=== PATIENT | female | born 1990 | race Caucasian/White ===

== ENCOUNTER 2017-05-17 20:09 | Inpatient (IN) | payer OTHER ==
--- NOTE | 2017-05-17 20:48 | EDPHY ---
H & P Stated Complaint: LRQ abd pain x 3d Time Seen by Provider: 05/17/17 20:47 HPI/ROS: HPI: This is a 27-year-old female who presents with Chief Complaint: RLQ abd pain x 3d Location: Right lower quadrant Quality: Abdominal pain Duration: 3 days Signs and Symptoms: no fever, + nausea, no vomiting, no hematemesis, no blood in stool, no abdominal bloating, no diarrhea, no back pain, no urinary symptoms , no vaginal bleeding, no vaginal discharge Timing: Rapid onset that is worsening in nature Severity: Moderate to severe Context: Patient presents complaining of right lower quadrant pain was the rapid onset that has become more severe since last night. Accompanied by nausea but no vomiting. Denies fever, chills, diarrhea, vaginal discharge, vaginal bleeding. This morning she was seen by the director for beauty [employer] and had her IUD removed and control implanted into her left upper arm. LMP was approximately 2 weeks ago and she has no prior history of ovarian cysts, fibroids, dyspareunia. Last meal was 1900 yesterday evening. Modifying Factors: None Comment: ROS: see HPI Constitutional: No fever, no chills, no weight loss Eyes: No blurred vision Respiratory: No shortness of breath, no cough Cardiovascular: No chest pain, no palpitations Gastrointestinal: + nausea, no vomiting, no diarrhea, no hematemesis, no blood in stool Genitourinary: No dysuria, no blood in urine Extremities: No myalgias, no edema Neurologic: No weakness, no numbness Skin: No rashes, no petechiae Hematologic: No bruising, no bleeding MEDICAL/SURGICAL/SOCIAL HISTORY: Medical history: Generally healthy. Does not take any regular medications. Surgical history: Denies Social history: Stop employed CONSTITUTIONAL: Pleasant mild distress adult white female, awake and alert, nontoxic in appearance HEENT: Atraumatic and normocephalic, PERRL, EOMI. Tympanic membranes clear. Oropharynx clear, no exudate and moist pink mucosa. Airway patent. No lymphadenopathy. No meningismus. Cardiovascular: Normal S1/S2, regular rate, regular rhythm, without murmur rub or gallop. PULMONARY/CHEST: Symmetrical and nontender. Clear to auscultation bilaterally. Good air movement. No accessory muscle usage. ABDOMEN: Soft, nondistended, exquisitely tender right lower quadrant, no rebound, no guarding, no peritoneal signs, no masses or organomegaly. No CVAT. EXTREMITIES: 2/2 pulses, strength 5/5, no deformities, no clubbing, no cyanosis or edema. NEUROLOGICAL: no focal neuro deficits. GCS 15. SKIN: Warm and dry, no erythema. no rash. Good capillary refill. Source: Patient Exam Limitations: No limitations - Personal History LMP (Females 10-55): 8-14 Days Ago Current Tetanus/Diphtheria Vaccine: Yes Current Tetanus Diphtheria and Acellular Pertussis (TDAP): Yes - Medical/Surgical History Hx Asthma: No Hx Chronic Respiratory Disease: No Hx Diabetes: No Hx Cardiac Disease: No Hx Renal Disease: No Hx Cirrhosis: No Hx Alcoholism: No Hx HIV/AIDS: No Hx Splenectomy or Spleen Trauma: No Other PMH: hypothyroid, neuromyelitis optica, Anemia, RA, chronic variable immune deficiency - Social History Smoking Status: Never smoked Constitutional: Initial Vital Signs Temperature (C) 37.1 C 05/17/17 20:14 Heart Rate 100 05/17/17 20:14 Respiratory Rate 16 05/17/17 20:14 Blood Pressure 134/91 H 05/17/17 20:14 O2 Sat (%) 96 05/17/17 20:14 O2 Delivery Mode Room Air Allergies/Adverse Reactions: No Known Allergies Allergy (Verified 05/17/17 20:14) Home Medications: Medication Instructions Recorded Levothyroxine [Synthroid 100 mcg 100 mcg PO DAILY06 03/30/15 (*)] Medical Decision Making - Diagnostics Imaging Results: Imaging Impressions Abdomen CT 05/17/17 20:50 Impression: Severe appendicitis. I telephoned results to LISA Sanchez at 2222 hours. ED Course/Re-evaluation: Labs, IV fluids, IV medications, CT abdomen and pelvis scan ordered Upon arrival given 1 L normal saline IV morphine 4 mg and IV Zofran with adequate relief of pain Vital show an show tachycardia with no pyrexia Labs reviewed and leukocytosis 9K 2225: Called by radiologist who advised that CT abdomen and pelvis scan shows acute appendicitis with free fluid and cannot rule out perforation. Discussed case with attending. Given another 1 L normal saline, IV morphine 4 mg, IV Zofran, and IV Invanz. 2227: ED decision to consult for admission. Spoke with Dr. Cruz Differential Diagnosis: Abdominal pain including but not limited to appendicitis, cholecystitis, gastritis and urinary tract infection. - Data Points Laboratory Results: Laboratory Results 05/17/17 20:46 05/17/17 20:46 05/17/17 05/17/17 05/17/17 20:46 20:46 20:46 WBC 9.74 10^3/uL H 10^3/uL (3.80-9.50) RBC 4.80 10^6/uL 10^6/uL (4.18-5.33) Hgb 13.9 g/dL g/dL (12.6-16.3) Hct 41.3 % % (38.0-47.0) MCV 86.0 fL fL (81.5-99.8) MCH 29.0 pg pg (27.9-34.1) MCHC 33.7 g/dL g/dL (32.4-36.7) RDW 14.6 % % (11.5-15.2) Plt Count 220 10^3/uL 10^3/uL (150-400) Sodium 139 mEq/L mEq/L (134-144) Potassium 3.8 mEq/L mEq/L (3.5-5.2) Chloride 100 mEq/L mEq/L (97-110) Carbon Dioxide 24 mEq/l mEq/l (22-31) Anion Gap 15 mEq/L mEq/L (8-16) BUN 14 mg/dL mg/dL (7-23) Creatinine 0.7 mg/dL mg/dL (0.6-1.0) Estimated GFR > 60 Glucose 98 mg/dL mg/dL (70-100) Calcium 9.9 mg/dL mg/dL (8.5-10.4) Total Bilirubin 0.7 mg/dL mg/dL (0.1-1.4) Conjugated Bilirubin 0.2 mg/dL mg/dL (0.0-0.5) Unconjugated Bilirubin 0.5 mg/dL mg/dL (0.0-1.1) AST 29 IU/L IU/L (14-46) ALT 30 IU/L IU/L (9-52) Alkaline Phosphatase 81 IU/L IU/L (38-126) Total Protein 7.5 g/dL g/dL (6.3-8.2) Albumin 4.5 g/dL g/dL (3.5-5.0) Beta HCG, Qual NEGATIVE Medications Given: Discontinued Medications Sodium Chloride (Ns) 1,000 mls @ 0 mls/hr IV EDNOW ONE; Wide Open PRN Reason: Protocol Stop: 05/17/17 20:53 Last Admin: 05/17/17 21:01 Dose: 1,000 mls Sodium Chloride (Ns) 1,000 mls @ 0 mls/hr IV EDNOW ONE; Wide Open PRN Reason: Protocol Stop: 05/17/17 22:24 Last Admin: 05/17/17 22:28 Dose: 1,000 mls Morphine Sulfate (Morphine) 4 mg IVP EDNOW ONE Stop: 05/17/17 20:54 Last Admin: 05/17/17 21:40 Dose: 2 mg Morphine Sulfate (Morphine) 2 mg IVP EDNOW ONE Stop: 05/17/17 21:39 Last Admin: 05/17/17 21:45 Dose: Not Given Ondansetron HCl (Zofran) 4 mg IVP EDNOW ONE Stop: 05/17/17 20:53 Last Admin: 05/17/17 21:01 Dose: 4 mg Departure - Departure Disposition: [facility] Acute Clinical Impression: Appendicitis Qualifiers: Appendicitis type: acute appendicitis Acute appendicitis type: with localized peritonitis Qualified Code(s): K35.3 - Acute appendicitis with localized peritonitis
[2017-05-17] MEDS ORDERED: NS 1,000 ML IV ONE ×2 (20:52→22:23)
[2017-05-17] MEDS ORDERED: ONDANSETRON 4 MG/2 ML VIAL IVP ONE ×2 (20:52→22:23)
[2017-05-17 20:55] LABS: HEMATOCRIT 41.3 % (38.0-47.0); HEMOGLOBIN 13.9 g/dL (12.6-16.3); MEAN CELL HEMOGLOBIN CONCENTR. 33.7 g/dL (32.4-36.7); RED BLOOD CELL COUNT 4.8 10^6/uL (4.18-5.33); RED CELL DISTRIBUTION WIDTH 14.6 % (11.5-15.2)
[2017-05-17 21:08] LABS: ALANINE AMINOTRANSFERASE 30 IU/L (9-52); ALBUMIN 4.5 g/dL (3.5-5.0); ALKALINE PHOSPHATASE 81 IU/L (38-126); ANION GAP 15 mEq/L (8-16); ASPARTATE AMINOTRANSFERASE 29 IU/L (14-46); BILIRUBIN,TOTAL 0.7 mg/dL (0.1-1.4); BILIRUBIN-CONJUGATED 0.2 mg/dL (0.0-0.5); BILIRUBIN-UNCONJUGATED 0.5 mg/dL (0.0-1.1); CALCIUM 9.9 mg/dL (8.5-10.4); CARBON DIOXIDE 24 mEq/l (22-31); CHLORIDE 100 mEq/L (97-110); CREATININE 0.7 mg/dL (0.6-1.0); GLOMERULAR FILTRATION RATE > 60; GLUCOSE 98 mg/dL (70-100); POTASSIUM 3.8 mEq/L (3.5-5.2); SODIUM 139 mEq/L (134-144); TOTAL PROTEIN 7.5 g/dL (6.3-8.2)
[2017-05-17] MEDS ORDERED: IOPAMIDOL (ISOVUE-300) 100 ML BTL ONE (21:20)
[2017-05-17] MEDS ORDERED: ERTAPENEM 1 GM in NS 100 ML IV ONE (22:23)
[2017-05-17] MEDS ORDERED: BUPIVACAINE 0.25% 30 ML SDV ONE (23:15)
--- NOTE | 2017-05-17 23:20 | PDGENHP ---
History and Physical - Chief Complaint abdominal pain - History of Present Illness 27 y/o female with 2 day hx of abd pain. She presented to [facility] today and had her IUD removed. She felt worse afterwards and came to the [facility] ED and was seen and evaluated by LISA Suresh and Dr. Loc Waggoner. A CT showed locally advanced appendicitis, possible ruptured. Surgical consultation was requested History Information - Allergies/Home Medication List Allergies/Adverse Reactions: No Known Allergies Allergy (Verified 05/17/17 20:14) Home Medications: Levothyroxine [Synthroid 100 mcg (*)] 100 mcg PO DAILY06 03/30/15 [Last Taken ] I have personally reviewed and updated: family history, medical history, social history, surgical history - Past Medical History arthritis Additional medical history: hypogammaglobulinemia/prolonged hospitalization in 2015/hx C diff. - Surgical History Additional surgical history: ORIF right ankle - Social History Smoking Status: Never smoked Alcohol Use: Occasionally Drug Use: Marijuana (smokes 2x week) Review of Systems Review of Systems: Constitutional: Reports: chills, fever EENMT: Reports: no symptoms Cardiac: Reports: no symptoms Respiratory: Reports: cough Gastrointestinal: Reports: vomitting, abdominal pain, abdominal distention Genitourinary: Reports: no symptoms, other (recently diagnosed with bacterial vaginosis/IUD out today ) Muscolosketal: Reports: joint pain, joint swelling Skin: Reports: no symptoms Neurological: Reports: no symptoms Physical Exam Physical Exam: Temp Pulse Resp BP Pulse Ox 37.3 C 104 H 18 122/77 H 98 05/17/17 22:29 05/17/17 22:29 05/17/17 22:29 05/17/17 22:29 05/17/17 22:29 Constitutional: uncomfortable Eyes: anicteric sclera Cardiovascular: regular rate and rhythym Respiratory: no respiratory distress, no rales or rhonchi, clear to auscultation Gastrointestinal: other (hypoactive bowel sounds) Skin: warm Neurologic: AAOx3 Psychiatric: interacting appropriately Lymph, Heme, Immunologic: no supraclavicular LAD Lab Data & Imaging Review 05/17/17 20:46 05/17/17 20:46 WBC 9.74 10^3/uL (3.80-9.50) H 05/17/17 20:46 RBC 4.80 10^6/uL (4.18-5.33) 05/17/17 20:46 Hgb 13.9 g/dL (12.6-16.3) 05/17/17 20:46 Hct 41.3 % (38.0-47.0) 05/17/17 20:46 MCV 86.0 fL (81.5-99.8) 05/17/17 20:46 MCH 29.0 pg (27.9-34.1) 05/17/17 20:46 MCHC 33.7 g/dL (32.4-36.7) 05/17/17 20:46 RDW 14.6 % (11.5-15.2) 05/17/17 20:46 Plt Count 220 10^3/uL (150-400) 05/17/17 20:46 Sodium 139 mEq/L (134-144) 05/17/17 20:46 Potassium 3.8 mEq/L (3.5-5.2) 05/17/17 20:46 Chloride 100 mEq/L (97-110) 05/17/17 20:46 Carbon Dioxide 24 mEq/l (22-31) 05/17/17 20:46 Anion Gap 15 mEq/L (8-16) 05/17/17 20:46 BUN 14 mg/dL (7-23) 05/17/17 20:46 Creatinine 0.7 mg/dL (0.6-1.0) 05/17/17 20:46 Estimated GFR > 60 05/17/17 20:46 Glucose 98 mg/dL (70-100) 05/17/17 20:46 Calcium 9.9 mg/dL (8.5-10.4) 05/17/17 20:46 Total Bilirubin 0.7 mg/dL (0.1-1.4) 05/17/17 20:46 Conjugated Bilirubin 0.2 mg/dL (0.0-0.5) 05/17/17 20:46 Unconjugated Bilirubin 0.5 mg/dL (0.0-1.1) 05/17/17 20:46 AST 29 IU/L (14-46) 05/17/17 20:46 ALT 30 IU/L (9-52) 05/17/17 20:46 Alkaline Phosphatase 81 IU/L (38-126) 05/17/17 20:46 Total Protein 7.5 g/dL (6.3-8.2) 05/17/17 20:46 Albumin 4.5 g/dL (3.5-5.0) 05/17/17 20:46 Beta HCG, Qual NEGATIVE 05/17/17 20:46 Visualized and Interpreted imaging results: Yes Interpretation: markedly dilated appendix (>2cm) free fluid/no discrete abscess Assessment & Plan Assessment: Appendicitis (Acute)probably ruptured hypogammaglobulinemia Plan: IV Invanz 1 gm to OR for appendectomy I recommended an open approach with drainage. We will obtain cultures and continue abx post op Hospitalist consult requested
[2017-05-17] MEDS ORDERED: NALOXONE HCL 0.4 MG/ML INJ IVP PRN (23:39)
[2017-05-17] MEDS ORDERED: ALBUTEROL 3 ML DEYVIAL IH PRN (23:39)
[2017-05-17] MEDS ORDERED: fentaNYL 100 MCG/2 ML INJ IVP PRN (23:39)
[2017-05-17] MEDS ORDERED: PROMETHAZINE HCL 25 MG/ML INJ IVP PRN (23:39)
[2017-05-17] MEDS ORDERED: ONDANSETRON 4 MG/2 ML VIAL IVP PRN (23:39)
--- NOTE | 2017-05-17 23:41 | PDANEPAE ---
ANE History of Present Illness Ruptured Appendicitis ANE Past Medical History - Cardiovascular History Hx Hypertension: No - Pulmonary History Hx Oxygen in Use at Home: No Hx Sleep Apnea: No - Endocrine History Hx Diabetes: No - Chronic Pain History Chronic Pain: No ANE Review of Systems Review of Systems: - Exercise capacity METS (RN): 4 METS ANE Patient History - Allergies Allergies/Adverse Reactions: No Known Allergies Allergy (Verified 05/17/17 20:14) - Home Medications Home Medications: Levothyroxine [Synthroid 100 mcg (*)] 100 mcg PO DAILY06 03/30/15 [Last Taken ] - NPO status NPO Since - Liquids (Date): 05/17/17 NPO Since - Liquids (Time): 22:00 NPO Since - Solids (Date): 05/16/17 NPO Since - Solids (Time): 19:00 - Smoking Hx Smoking Status: Never smoked - Alcohol Use Alcohol Use: Occasionally ANE Labs/Vital Signs - Labs Result Diagrams: 05/17/17 20:46 05/17/17 20:46 - Vital Signs Blood Pressure: 122/87 Heart Rate: 89 Respiratory Rate: 16 O2 Sat (%): 96 Height: 162.56 cm Weight: 63.503 kg ANE Physical Exam - Airway Neck exam: FROM Mallampati Score: Class 2 Mouth exam: normal dental/mouth exam - Pulmonary Pulmonary: clear to auscultation - Cardiovascular Cardiovascular: regular rate and rhythym - ASA Status ASA Status: II ANE Anesthesia Plan Anesthesia Plan: general endotracheal anesthesia
[2017-05-17] MEDS ORDERED: fentaNYL 100 MCG/2 ML INJ ONE (23:50)
[2017-05-17] MEDS ORDERED: ROCURONIUM 50 MG/5 ML VIAL ONE (23:50)
[2017-05-17] MEDS ORDERED: PROPOFOL 200 MG/20 ML VIAL ONE (23:50)
[2017-05-17] MEDS ORDERED: LIDOCAINE 2% 5 ML SDV ONE (23:51)
[2017-05-17] MEDS ORDERED: ONDANSETRON 4 MG/2 ML VIAL ONE (23:52)
[2017-05-17] MEDS ORDERED: DEXAMETHASONE 4 MG/ML VIAL ONE (23:52)
[2017-05-18] MEDS ORDERED: LR 1,000 ML IV ONE (00:25)
[2017-05-18] MEDS ORDERED: fentaNYL 100 MCG/2 ML INJ ONE (00:38)
[2017-05-18] MEDS ORDERED: HYDROmorphONE/DILAUDID 1 MG/ML INJ ONE ×2 (01:04→01:10)
[2017-05-18] MEDS: HYDROmorphONE/DILAUDID 1 MG/ML INJ IVP PRN ×8 (01:04→10:50)
--- NOTE | 2017-05-18 01:04 | POSTANESTH ---
Post Anesthetic Evaluation Cardiovascular Status: Normal, Stable Respiratory Status: Normal, Stable Level of Consciousness/Mental Status: Can Participate in Eval, Alert and Oriented Pain Control: Adequate, Prn Tx Ordered Nausea/Vomiting Control: Adequate, Prn Tx Ordered Complications Possibly Related to Anesthesia: None Noted
--- NOTE | 2017-05-18 01:04 | POSTOPPROG ---
Post Op Note Date of Operation: 05/18/17 Surgeon: Marvin Cruz (, FACS) Anesthesiologist: Jem Mackenzie DO Anesthesia: GET(General Endotracheal) Pre-op Diagnosis: acute appendicitis with rupture Post-op Diagnosis: acute on chronic appendicitis with rupture Procedure: appendectomy with drainage abscess Inf/Abcess present in the surg proc area at time of surgery?: Yes Depth: Organ Space EBL: Minimal Drains: Rafi Wren Dieudonne Specimen(s): appendix/culture
[2017-05-18] MEDS ORDERED: HYDROCODONE/APAP 5/325 TAB PO PRN (01:05)
[2017-05-18] MEDS ORDERED: ONDANSETRON 4 MG/2 ML VIAL IVP PRN (01:05)
[2017-05-18] MEDS ORDERED: METOCLOPRAMIDE 10 MG/2 ML VIAL IVP PRN (01:05)
[2017-05-18] MEDS ORDERED: KETOROLAC 15 MG/1 ML SDV ONE ×2 (01:11→01:17)
[2017-05-18] MEDS: KETOROLAC 15 MG/1 ML SDV IVP SCH ×4 (01:12→18:05)
[2017-05-18] MEDS ORDERED: D5W 1/2 NS W/ 20 KCl/L 1,000 ML IV SCH (01:15)
--- NOTE | 2017-05-18 03:59 | GCON ---
[f rep st] CONSULTATION DATE OF CONSULTATION: 05/18/2017 REFERRING PHYSICIAN: Marvin Cruz MD REASON FOR CONSULTATION: Medical management with history of hypogammaglobulinemia. CHIEF COMPLAINT: Right lower quadrant abdominal pain. HISTORY OF PRESENT ILLNESS: This is a very pleasant 27-year-old female with past medical history sig nificant for hypogammaglobulinemia, anemia of chronic disease, polyarticular arthritis, and chronic p ain, who presents to the emergency department today for complaints of abdominal pain. Patient report s her pain started several days ago, 2-3 days ago. She endorses nausea without vomiting. Has had so me constipation without any melena or hematochezia. Patient was recently at her [employer] earlier today and had her IUD removed. She had increasing right lower quadrant pain and presented to the emergenc y department. Patient also endorses subjective fevers for the last several days, in addition to chil ls. Patient without any vaginal bleeding or discharge. Patient's LMP was approximately 2 weeks ago. REVIEW OF SYSTEMS: GENERAL: Positive for subjective fevers, chills, decreased appetite. SKIN: Pat ient denies any new rashes or sores. ENT: Patient denies any congestion, sore throat. EYES: Patie nt denies any acute changes in vision or ocular pain. RESPIRATORY: Patient denies any shortness of breath or cough. CV: Patient denies any chest pain or palpitations. GI: Positive for nausea. No vomiting. No diarrhea. Positive constipation. No melena or hematochezia. See HPI for additional d etails. : No dysuria or hematuria. MUSCULOSKELETAL: Patient with chronic ankle and hip pain and back pain related to her polyarticular arthritis. NEURO: Patient without any complaints of headach e, numbness, tingling, or focal deficits. PSYCH: Patient currently feeling stressed, but no previou s history of anxiety or depression. Remainder of review of systems negative except as noted above. ALLERGIES: No known drug allergies. HOME MEDICATIONS: Synthroid 100 mcg p.o. daily. PAST MEDICAL HISTORY: Significant for hypogammaglobulinemia; history of neuromyelitis optica in 2014 , status post Rituxan and CellCept; history anemia of chronic disease; history of C difficile in [place]; polyarticular arthritis with primary joints affected, including hips and ankles, chronic back pain; hypothyroidism. PAST SURGICAL HISTORY: Significant for right ankle washout and biopsy. Today, she underwent an open appendectomy. FAMILY HISTORY: Significant for mother with an autoimmune thyroid disease, diabetes type 1. Brother with type 1 diabetes, hyperparathyroidism. SOCIAL HISTORY: Patient currently lives with her boyfriend. She does not smoke cigarettes or drink alcohol. She does use occasional marijuana. CODE STATUS: Full. PHYSICAL EXAMINATION: VITAL SIGNS: Upon arrival to the ED, blood pressure 134/91, pulse 100, respir atory rate 16, O2 saturation 96% on room air with a temperature 37.1. Vitals currently in the PACU, blood pressure 120/72, heart rate is 86, respiratory rate 11, O2 saturation 96% on nasal cannula. GE NERAL: No acute distress. Patient is lying quite still in the gurney. She does appear fatigued, ac utely ill, but nontoxic, anxious. HEAD: Normocephalic, atraumatic. EYES: Extraocular muscles are grossly intact. No scleral icterus or conjunctival injection. ENT: Mucous membranes appear slightl y dry. No nasal discharge. NECK: Supple. Trachea midline. CV: Regular rate and rhythm. No murm urs, rubs, or gallops appreciated. RESPIRATORY: Lungs clear to auscultation bilaterally. Patient w ith decreased inspiratory effort secondary to complaints of abdominal pain with inspiration. ABDOMEN : Slightly distended. Exam limited secondary to patient complaint of pain and postoperative status. Patient with a drain with serosanguineous fluid. Bandaged abdomen without any active oozing or ble eding. : No Sneed in place. Limited again secondary to postop abdominal status. EXTREMITIES: N o cyanosis, clubbing, or edema appreciated. NEURO: Grossly nonfocal. Limited secondary to patient' s complaint of pain at this time. PSYCH: Patient is anxious, complaining of pain, but cooperative a nd pleasant. Thought process and content are appropriate. LABORATORY DATA: WBC is 9.74, H and H 13.9 and 41.3, MCV of 86.0, platelet count is 220. Sodium is 139, potassium 3.8, chloride 100, CO2 is 24, anion gap 15, BUN 14, creatinine 0.7, GFR grea ter than 60, glucose 98, calcium 9.9. Total bilirubin 0.7, conjugated bilirubin 0.2, ALT is 30, AST is 29, alkaline phosphatase 81, total protein 7.5, albumin 4.5. Beta-hCG is negative. IMAGING DATA: CT abdomen and pelvis showing an enlarged appendix measuring 1.8 cm in diameter with l eft nearby edema. No free air. No abscess. Small amount of free fluid pleasant in the pelvic cavit y. Moderate amounts of stool present in the colon. Terminal ileum mildly dilated. Otherwise normal . ASSESSMENT AND PLAN: This is a pleasant 27-year-old female with history of hypogammaglobulinemia, wh o presents with right lower quadrant pain, status post appendectomy for acute on chronic appendicitis rupture. Dr. Cruz requested consultation to assist with medical management. 1. Hypogammaglobulinemia. Patient with subjective fevers, chills, tachycardia with adequate blood p ressures. She has received Invanz preoperatively, and this will continue. A culture has been obtain ed and will plan to monitor. 2. Acute on chronic appendicitis, postop day #0, as per Dr. Cruz. 3. Hypothyroidism. Resume patient's levothyroxine. 4. Fluids, electrolytes, and nutrition. Patient with D5W half-normal saline with 20 K ordered, as p er Dr. Cruz. Diet to be advanced as tolerated. Electrolyte replacement if needed. 5. Prophylaxis. SCDs ordered while in bed. If patient should stay for extended period, will defer anticoagulation and timing to Dr. Cruz. 6. Code status. Full. DISPOSITION: Patient has been admitted to inpatient status, currently on the med-surg floor. Will n eed to monitor her vital signs closely for any progression to SIRS or sepsis. Thank you for this consultation. Will continue to monitor along with you. Plan for a.m. labs. /[id number]/MODL
[2017-05-18 05:50] LABS: % IMMATURE GRANULYOCYTES 0.5 % (0.0-1.1); ABSOLUTE IMMATURE GRANULOCYTES 0.06 10^3/uL (0.00-0.10); ADD DIFF? NO; ADD MORPH? NO; ADD SCAN? NO; ATYPICAL LYMPHOCYTE FLAG 0 (0-99); FRAGMENT RBC FLAG 0 (0-99); HEMATOCRIT 35.7 % (38.0-47.0); HEMOGLOBIN 11.9 g/dL (12.6-16.3); LEFT SHIFT FLG 0 (0-99); LIPEMIA HEMOLYSIS FLAG 80 (0-99); MEAN CELL HEMOGLOBIN CONCENTR. 33.3 g/dL (32.4-36.7); MEAN CELL VOLUME 86.9 fL (81.5-99.8); MEAN PLATELET VOLUME 10.9 fL (8.7-11.7); PLATELET CLUMPS FLAG 10 (0-99); PLATELET COUNT 205 10^3/uL (150-400); RED BLOOD CELL COUNT 4.11 10^6/uL (4.18-5.33); RED CELL DISTRIBUTION WIDTH 14.6 % (11.5-15.2)
[2017-05-18 06:03] LABS: ALANINE AMINOTRANSFERASE 27 IU/L (9-52); ALBUMIN 3.8 g/dL (3.5-5.0); ALKALINE PHOSPHATASE 69 IU/L (38-126); ANION GAP 14 mEq/L (8-16); ASPARTATE AMINOTRANSFERASE 21 IU/L (14-46); BILIRUBIN,TOTAL 0.4 mg/dL (0.1-1.4); CALCIUM 8.9 mg/dL (8.5-10.4); CARBON DIOXIDE 23 mEq/l (22-31); CHLORIDE 104 mEq/L (97-110); CREATININE 0.7 mg/dL (0.6-1.0); GLOMERULAR FILTRATION RATE > 60; GLUCOSE 171 mg/dL (70-100); POTASSIUM 4.4 mEq/L (3.5-5.2); SODIUM 141 mEq/L (134-144); TOTAL PROTEIN 6.1 g/dL (6.3-8.2)
[2017-05-18 06:51] LABS: COLOR YELLOW; LEUKOCYTE ESTERASE,URINE NEGATIVE (NEGATIVE); NITRITE,URINE NEGATIVE (NEGATIVE)
[2017-05-18 07:51] LABS: MUCUS TRACE /lpf (NONE-1+)
--- NOTE | 2017-05-18 07:51 | SOAPPROG ---
SOAP Progress Note Assessment/Plan: Assessment:continue Invanz check cultures and adjust abx as needed hospitalist consult appreciated Plan:increase activity and diet as tolerated 05/18/17 07:50 Subjective: resting comfortably Objective: Vital Signs Temp Pulse Resp BP Pulse Ox 36.8 C 62 20 90/56 L 93 05/18/17 07:40 05/18/17 07:40 05/18/17 07:40 05/18/17 07:40 05/18/17 07:40 Laboratory Results 05/18/17 05:30 05/18/17 05:30 05/17/17 05/18/17 05/19/17 05:59 05:59 05:59 Intake Total 2550 Output Total 399 Balance 2151 - Pending Discharge Pending Discharge Within 24 Hours: No Pending Discharge Within 48 Hours: No Physical Exam - Physical Exam General Appearance: mild distress Abdomen: soft, distended, other (ALDA serosanguinous/minimal drainage from yohana /hypoactive bowel sounds) ICD10 Worksheet Patient Problems: Problems Problem Status Onset Appendicitis Acute Abdominal pain Acute C. difficile diarrhea Acute 03/30/15 Continuous opioid dependence Acute Diarrhea Acute Hypogammaglobulinemia Acute Nausea & vomiting Acute Neuromyelitis optica Acute Polyarticular arthritis Acute - ICD10 Problem Qualifiers (1) Appendicitis Qualifiers: Appendicitis type: acute appendicitis Acute appendicitis type: other Qualified Code(s): K35.89 - Other acute appendicitis (2) Hypogammaglobulinemia
[2017-05-18] MEDS: ERTAPENEM 1 GM in NS 100 ML IV SCH (08:51)
[2017-05-18] MEDS: ENOXAPARIN 40 MG/0.4 ML SYR SC SCH (08:55)
[2017-05-18] MEDS: LEVOTHYROXINE 100 MCG TAB PO SCH (09:12)
--- NOTE | 2017-05-18 09:26 | GOP ---
[f rep st] OPERATIVE REPORT DATE OF OPERATION: SURGEON: Marvin Cruz MD, FACS ANESTHESIA: General endotracheal. ANESTHESIOLOGIST: Jem Mackenzie DO PREOPERATIVE DIAGNOSIS: Acute appendicitis with likely perforation. POSTOPERATIVE DIAGNOSIS: Acute appendicitis with likely perforation. PROCEDURE PERFORMED: Open appendectomy with drainage of periappendiceal abscess. FINDINGS: Contained rupture of the appendix with moderate amount of purulent fluid drained, specimen submitted for aerobes and anaerobes. Evidence of acute on chronic appendicitis. ESTIMATED BLOOD LOSS: 10 mL. DESCRIPTION OF PROCEDURE: After informed consent was obtained, the patient was brought to the operating room and placed under general anesthesia. The abdomen was prepped and draped in the usual fashion. Before proceeding, a time-out and identification of the patient was performed. Palpation of the abdomen under anesthesia revealed a mass in the right lower quadrant. The abdominal wall was infiltrated with 0.25% Marcaine, lateral to the planned incision site. A transverse incision was made and dissection carried out through skin, subcutaneous tissues, anterior fascia. The internal oblique and transverse abdominis muscles were split. The peritoneum was incised. The peritoneal cavity was entered and explored. The patient had a firm mass at the pelvic brim consistent with a localized perforation of the appendix. The omentum was reflected cephalad, and the appendix was bluntly from the pelvic brim and brought toward the incision. It was clear that this represented an acute on chronic process as there was an intense thickening and inflammation of the mesoappendix and surrounding structures indicating some chronicity. The mesoappendix could not easily be clamped and ligated, or suture ligated, because of the friable nature of the periappendiceal fat. I chose to use the Harmonic Scalpel and cautery to obtain hemostasis of the mesoappendiceal vessels, dissecting down to the serosa of the appendix and near the base where it joined the cecum, it became quite narrow. The tip was quite dilated and contained a localized abscess that drained in the course of removing the appendix, and did not have a particularly foul odor. The purulent fluid that drained out was cultured for aerobes and anaerobes, and was kept from coming in contact with the wound. After the base of the appendix was clearly visualized, it was from the cecum with a single fire of the JAZMYNE stapler, and removed from the field. The wound was irrigated. The pelvis was irrigated with normal saline until the effluent was clear. Patient' s right adnexal felt normal. There were no other secondary fluid collections noted. A 10 mm flat Rafi-Wren drain was brought through a separate stab wound and placed into the dependent portion of the pelvis. The peritoneum was closed with continuous running 2-0 Vicryl suture. Subcutaneous tissues and muscle were again irrigated with normal saline. The fascia was closed with 0 PDS sutures in a continuous running fashion. Subcutaneous tissues were drained with a quarter-inch Dieudonne drain, secured to the skin with 3-0 Prolene suture. The skin was closed with fab. Sterile dressings were applied, and the patient was brought to the recovery room in satisfactory condition. Needle, sponge, and instrument counts were correct. COMPLICATIONS: None. /[id number]/MODL MTDD
--- NOTE | 2017-05-18 13:00 | HOSPPROG ---
Hospitalist Progress Note Assessment/Plan: Patient is a 27-year-old female with a past medical history for hypogammaglobulinemia, anemia of chronic disease, polyarticular arthritis who presented to the ER with co abdominal pain. * abdominal pain/appendicitis -status post appendectomy -postop day 1. -getting little relief w [place], trial of Percocet -initiate bowel protocol * history of hypogammaglobulinemia -has some subjective fevers and chills -on Invanz -not febrile/ wbc is 12 * hypothyroidism -resume Synthroid *plan: cont current treatment, change pain meds, dc iv Dilaudid,initiate bowel protocol Subjective: Jackie says she is eating clear liquids well. Requested a stronger oral pain medication Objective: Vital Signs Temp Pulse Resp BP Pulse Ox 36.8 C 68 18 90/57 L 93 05/18/17 12:04 05/18/17 12:04 05/18/17 12:04 05/18/17 12:04 05/18/17 12:04 Microbiology 05/18/17 00:40 Gram Stain - Final Appendix - Swab Laboratory Results 05/18/17 05:30 05/18/17 05:30 05/17/17 05/18/17 05/19/17 05:59 05:59 05:59 Intake Total 2550 Output Total 399 Balance 2151 - Physical Exam Constitutional: uncomfortable Eyes: PERRL Ears, Nose, Mouth, Throat: hearing normal Cardiovascular: regular rate and rhythym Respiratory: no respiratory distress Gastrointestinal: tenderness (slight at incisional site), No normoactive bowel sounds (slightly hypoactive) Skin: warm Musculoskeletal: no muscle tenderness Neurologic: AAOx3 Psychiatric: interacting appropriately ICD10 Worksheet Patient Problems: Problems Problem Status Onset Appendicitis Acute Abdominal pain Acute C. difficile diarrhea Acute 03/30/15 Continuous opioid dependence Acute Diarrhea Acute Hypogammaglobulinemia Acute Nausea & vomiting Acute Neuromyelitis optica Acute Polyarticular arthritis Acute
[2017-05-18] MEDS ORDERED: OXYCODONE/APAP 5/325 TAB PO PRN (15:13)
[2017-05-18] MEDS ORDERED: MAGNESIUM HYDROXIDE 30 ML UDCUP PO PRN (15:15)
[2017-05-18] MEDS ORDERED: LACTULOSE 20 GM/30 ML UDCUP PO PRN (15:15)
[2017-05-18] MEDS ORDERED: BISACODYL 10 MG SUPP PR PRN (15:15)
[2017-05-18] MEDS: POLYETHYLENE GLYCOL 3350 17 GM PKT PO SCH (18:04)
[2017-05-18] MEDS ORDERED: HYDROmorphONE/DILAUDID 2 MG TAB PO PRN (19:13)
[2017-05-18] MEDS: SENNOSIDES/DOCUSATE SODIUM TAB PO SCH (19:59)
[2017-05-19] MEDS: KETOROLAC 15 MG/1 ML SDV IVP SCH ×4 (00:04→18:59)
[2017-05-19] MEDS: MELATONIN 3 MG TAB PO SCH ×2 (00:20→20:17)
[2017-05-19 03:20] LABS: % IMMATURE GRANULYOCYTES 0.3 % (0.0-1.1); ABSOLUTE IMMATURE GRANULOCYTES 0.03 10^3/uL (0.00-0.10); ADD DIFF? NO; ADD MORPH? NO; ADD SCAN? NO; ATYPICAL LYMPHOCYTE FLAG 0 (0-99); FRAGMENT RBC FLAG 0 (0-99); HEMATOCRIT 35.6 % (38.0-47.0); HEMOGLOBIN 12.2 g/dL (12.6-16.3); LEFT SHIFT FLG 0 (0-99); LIPEMIA HEMOLYSIS FLAG 90 (0-99); MEAN CELL HEMOGLOBIN 29.7 pg (27.9-34.1); MEAN CELL HEMOGLOBIN CONCENTR. 34.3 g/dL (32.4-36.7); MEAN CELL VOLUME 86.6 fL (81.5-99.8); MEAN PLATELET VOLUME 10.6 fL (8.7-11.7); PLATELET CLUMPS FLAG 0 (0-99); PLATELET COUNT 224 10^3/uL (150-400); RED BLOOD CELL COUNT 4.11 10^6/uL (4.18-5.33); RED CELL DISTRIBUTION WIDTH 14.2 % (11.5-15.2)
[2017-05-19] MEDS: LEVOTHYROXINE 100 MCG TAB PO SCH (06:39)
--- NOTE | 2017-05-19 07:00 | SOAPPROG ---
SOAP Progress Note Assessment/Plan: Assessment:continue Invanz + diet as tolerated gram stain: +4 PMN/no org, no growth x 24 hours hospitalist consult appreciated Plan:increase activity/I will likely pull drains tomorrow anticipate discharge Monday with ? po abx 05/18/17 07:50 05/19/17 06:56 Objective: Vital Signs Temp Pulse Resp BP Pulse Ox 36.6 C 77 16 102/72 96 05/19/17 03:26 05/19/17 03:26 05/19/17 03:26 05/19/17 03:26 05/19/17 03:26 Microbiology 05/18/17 00:40 Gram Stain - Final Appendix - Swab Laboratory Results 05/19/17 03:00 05/18/17 05:30 05/18/17 05/19/17 05/20/17 05:59 05:59 05:59 Intake Total 2550 100 Output Total 399 1172 Balance 2151 -1072 - Pending Discharge Pending Discharge Within 24 Hours: No Pending Discharge Within 48 Hours: Yes Pending Discharge Date: 05/21/17 Pending Discharge Time: 11:00 Physical Exam - Physical Exam General Appearance: no apparent distress Abdomen: soft, distended, other (inicison o.k./dressing changed) ICD10 Worksheet Patient Problems: Problems Problem Status Onset Appendicitis Acute Abdominal pain Acute C. difficile diarrhea Acute 03/30/15 Continuous opioid dependence Acute Diarrhea Acute Hypogammaglobulinemia Acute Nausea & vomiting Acute Neuromyelitis optica Acute Polyarticular arthritis Acute - ICD10 Problem Qualifiers (1) Appendicitis Qualifiers: Appendicitis type: acute appendicitis Acute appendicitis type: other Qualified Code(s): K35.89 - Other acute appendicitis (2) Hypogammaglobulinemia
[2017-05-19] MEDS: ENOXAPARIN 40 MG/0.4 ML SYR SC SCH (09:04)
[2017-05-19] MEDS: ERTAPENEM 1 GM in NS 100 ML IV SCH (09:09)
[2017-05-19] MEDS: POLYETHYLENE GLYCOL 3350 17 GM PKT PO SCH (09:22)
[2017-05-19] MEDS: SENNOSIDES/DOCUSATE SODIUM TAB PO SCH ×2 (09:23→21:15)
--- NOTE | 2017-05-19 15:23 | HOSPPROG ---
Hospitalist Progress Note Assessment/Plan: Patient is a 27-year-old female with a past medical history for hypogammaglobulinemia, anemia of chronic disease, polyarticular arthritis who presented to the ER with co abdominal pain. * abdominal pain/appendicitis -cx grew out streptococcus and Eikenella -status post appendectomy -postop day 2 -dc Ertapenem and started Augmentin -little output from the drains * history of hypogammaglobulinemia -not febrile, wbc has stabilized * hypothyroidism -resume Synthroid *plan: cont current treatment, curb sided ID/ recommendation is for abx treatment x 7 days. She will likely be dc'd soon. Subjective: Jackie is feeling well today. No complaints. Objective: Vital Signs Temp Pulse Resp BP Pulse Ox 37.4 C 85 16 105/70 93 05/19/17 12:25 05/19/17 12:25 05/19/17 12:25 05/19/17 12:25 05/19/17 12:25 Microbiology 05/18/17 00:40 Gram Stain - Final Appendix - Swab Laboratory Results 05/19/17 03:00 05/18/17 05:30 05/18/17 05/19/17 05/20/17 05:59 05:59 05:59 Intake Total 2550 100 Output Total 399 1172 19 Balance 2151 -1072 -19 - Physical Exam Constitutional: no apparent distress, appears nourished, not in pain Eyes: PERRL Ears, Nose, Mouth, Throat: hearing normal Cardiovascular: regular rate and rhythym Respiratory: no respiratory distress Gastrointestinal: normoactive bowel sounds Skin: warm Musculoskeletal: full muscle strength Neurologic: AAOx3 Psychiatric: interacting appropriately, not anxious ICD10 Worksheet Patient Problems: Problems Problem Status Onset Appendicitis Acute Abdominal pain Acute C. difficile diarrhea Acute 03/30/15 Continuous opioid dependence Acute Diarrhea Acute Hypogammaglobulinemia Acute Nausea & vomiting Acute Neuromyelitis optica Acute Polyarticular arthritis Acute
[2017-05-19] MEDS: AMOXICILLIN/CLAVULANATE POT 875/125 MG TAB PO SCH (21:15)
[2017-05-20] MEDS: KETOROLAC 15 MG/1 ML SDV IVP SCH ×3 (00:24→12:25)
[2017-05-20] MEDS: LEVOTHYROXINE 100 MCG TAB PO SCH (06:11)
--- NOTE | 2017-05-20 07:14 | SOAPPROG ---
SOAP Progress Note Assessment/Plan: Assessment:clinically improved/drains removed today cultures + Strep/Eikenella Day # 4 Invanz hospitalist consult appreciated Plan:increase activity anticipate discharge Monday with ? po abx 05/18/17 07:50 05/19/17 06:56 05/20/17 07:23 05/20/17 07:28 Subjective: resting comfortably/not taking narcotics tolerated diet Objective: Vital Signs Temp Pulse Resp BP Pulse Ox 36.6 C 68 16 110/73 94 05/20/17 00:20 05/20/17 00:20 05/20/17 00:20 05/20/17 00:20 05/20/17 00:20 Microbiology 05/18/17 00:40 Gram Stain - Final Appendix - Swab Laboratory Results 05/19/17 03:00 05/18/17 05:30 05/19/17 05/20/17 05/21/17 05:59 05:59 05:59 Intake Total 100 100 Output Total 1172 56 Balance -1072 44 - Pending Discharge Pending Discharge Within 24 Hours: Yes Pending Discharge Date: 05/21/17 Pending Discharge Time: 11:00 Physical Exam - Physical Exam General Appearance: alert, no apparent distress Neck: non-tender Respiratory: lungs clear, normal breath sounds Cardiac/Chest: regular rate, rhythm Abdomen: non-tender, soft, other (drains removed/incision healing without signs of infection) Skin: warm/dry ICD10 Worksheet Patient Problems: Problems Problem Status Onset Appendicitis Acute Abdominal pain Acute C. difficile diarrhea Acute 03/30/15 Continuous opioid dependence Acute Diarrhea Acute Hypogammaglobulinemia Acute Nausea & vomiting Acute Neuromyelitis optica Acute Polyarticular arthritis Acute - ICD10 Problem Qualifiers (1) Appendicitis Qualifiers: Appendicitis type: acute appendicitis Acute appendicitis type: other Qualified Code(s): K35.89 - Other acute appendicitis (2) Hypogammaglobulinemia
[2017-05-20] MEDS: AMOXICILLIN/CLAVULANATE POT 875/125 MG TAB PO SCH ×2 (08:36→21:15)
[2017-05-20] MEDS: SENNOSIDES/DOCUSATE SODIUM TAB PO SCH ×2 (08:37→19:27)
[2017-05-20] MEDS: ENOXAPARIN 40 MG/0.4 ML SYR SC SCH (08:38)
--- NOTE | 2017-05-20 09:01 | HOSPPROG ---
Hospitalist Progress Note Assessment/Plan: Patient is a 27-year-old female with a past medical history for hypogammaglobulinemia, anemia of chronic disease, polyarticular arthritis who presented to the ER with co abdominal pain. * abdominal pain/appendicitis -cx grew out streptococcus and Eikenella -status post appendectomy -postop day 3 -Augmentin -little output from the drains * history of hypogammaglobulinemia -not febrile, wbc has stabilized * hypothyroidism -resume Synthroid *plan: cont current treatment, curb sided ID/ recommendation is for abx treatment x 7 days. She will likely be dc'd soon. Subjective: Jackie is feeling better, has no complaints. Objective: Vital Signs Temp Pulse Resp BP Pulse Ox 37.3 C 73 15 110/73 93 05/20/17 08:33 05/20/17 08:33 05/20/17 08:33 05/20/17 08:33 05/20/17 08:33 Microbiology 05/18/17 00:40 Gram Stain - Final Appendix - Swab Laboratory Results 05/19/17 03:00 05/18/17 05:30 05/19/17 05/20/17 05/21/17 05:59 05:59 05:59 Intake Total 100 100 Output Total 1172 56 Balance -1072 44 - Physical Exam Constitutional: no apparent distress, appears nourished, not in pain Eyes: PERRL Ears, Nose, Mouth, Throat: hearing normal Respiratory: no respiratory distress Skin: warm Musculoskeletal: full muscle strength Neurologic: AAOx3 Psychiatric: interacting appropriately ICD10 Worksheet Patient Problems: Problems Problem Status Onset Appendicitis Acute Abdominal pain Acute C. difficile diarrhea Acute 03/30/15 Continuous opioid dependence Acute Diarrhea Acute Hypogammaglobulinemia Acute Nausea & vomiting Acute Neuromyelitis optica Acute Polyarticular arthritis Acute
[2017-05-20] MEDS: POLYETHYLENE GLYCOL 3350 17 GM PKT PO SCH (09:04)
[2017-05-20] MEDS: IBUPROFEN 200 MG TAB PO PRN (12:34)
[2017-05-20] MEDS: MELATONIN 3 MG TAB PO SCH (21:15)
[2017-05-20] MEDS ORDERED: diphenhydrAMINE 25 MG CAP PO PRN (21:25)
[2017-05-21] MEDS: LEVOTHYROXINE 100 MCG TAB PO SCH (05:07)
[2017-05-21 05:11] VITALS: O2SAT 93
[2017-05-21] MEDS: POLYETHYLENE GLYCOL 3350 17 GM PKT PO SCH (08:14)
[2017-05-21] MEDS: SENNOSIDES/DOCUSATE SODIUM TAB PO SCH (08:14)
[2017-05-21] MEDS: IBUPROFEN 200 MG TAB PO PRN (08:14)
[2017-05-21] MEDS: ENOXAPARIN 40 MG/0.4 ML SYR SC SCH ×2 (08:15→08:52)
[2017-05-21] MEDS: AMOXICILLIN/CLAVULANATE POT 875/125 MG TAB PO SCH (08:23)
[2017-05-21 09:25] VITALS: BP 104/71; PULSE 67; RESP 18; TEMP 98.1
== END 2017-05-21 10:30 | disposition home or self-care (01) | DRG 339 ==
LOC: FOB 05-18 01:00
PROVIDERS: ADMIT Surgery; ATTEND Surgery
PROC: 0DTJ0ZZ Resection of Appendix, Open Approach (ICD-10-PCS; principal; 2017-05-17 00:11)
DX: K35.3 Acute appendicitis with localized peritonitis (principal); D80.1 Nonfamilial hypogammaglobulinemia; K36 Other appendicitis; E03.9 Hypothyroidism, unspecified; D63.8 Anemia in other chronic diseases classified elsewhere; M06.9 Rheumatoid arthritis, unspecified
CPT/HCPCS: 96365; J1100; J1170; J1200; J1335; J1650; J1885; J2405; J2704; J3010; Q9967